=== PATIENT | female | born 1990 | race Caucasian/White ===

== ENCOUNTER 2017-10-02 09:47 | Emergency (ER) | payer SELFPAY ==
--- NOTE | 2017-10-02 10:00 | UC ---
Throat Pain/Nasal Blake HPI - HPI Summary HPI Summary: 27 year old female presents with complains of sinus congestion and left ear pain. - History of Current Complaint Stated Complaint: LEFT EAR/SINUS COMPLAINT Time Seen by Provider: 10/02/17 10:00 Hx Obtained From: Patient Hx Last Menstrual Period: 04/17/16 pt on depo provera Onset/Duration: Sudden Onset Severity: Moderate Pain Scale Used: 0-10 Numeric - 5 Cough: Nonproductive Associated Signs & Symptoms: Positive: Sinus Discomfort Related History: Seasonal Allergies - Allergies/Home Medications Allergies/Adverse Reactions: Allergies Allergy/AdvReac Type Severity Reaction Status Date / Time No Known Allergies Allergy Verified 10/02/17 10:29 Home Medications: Home Medications B/P 1 tab PO DAILY 10/02/17 [History] Ibuprofen [Ibuprofen 200 MG] 600 mg PO PRN 10/02/17 [History] PMH/Surg Hx/FS Hx/Imm Hx Previously Healthy: Yes - Surgical History Surgical History: None - Family History Known Family History: Positive: None, Respiratory Disease - TOBACCO ABUSE: PARENTS (CHILDHOOD 2ND HAND SMOKE EXPOSURE) Negative: Blood Disorder - Social History Alcohol Use: Occasionally Substance Use Type: None, Prescribed Smoking Status (MU): Never Smoked Tobacco Type: eCigarettes Review of Systems Constitutional: Negative Skin: Negative Eyes: Negative ENT: Ear Ache, Nasal Discharge, Sinus Congestion, Sinus Pain/Tenderness Respiratory: Negative Cardiovascular: Negative Gastrointestinal: Negative Genitourinary: Negative Motor: Negative Neurovascular: Negative Musculoskeletal: Negative Neurological: Negative Psychological: Negative All Other Systems Reviewed And Are Negative: Yes Physical Exam Triage Information Reviewed: Yes Vital Signs Reviewed: Yes Eye Exam: Normal ENT: Positive: Nasal congestion, Nasal drainage, Sinus tenderness Dental Exam: Normal Neck exam: Normal Neck: Positive: 1 Respiratory Exam: Normal Cardiovascular Exam: Normal Abdominal Exam: Normal Musculoskeletal Exam: Normal Neurological Exam: Normal Psychological Exam: Normal Skin Exam: Normal Throat Pain/Nasal Course/Dx - Differential Dx/Diagnosis Provider Diagnoses: sinusitis. left otitis externa Discharge - Discharge Plan Condition: Stable Disposition: HOME Prescriptions: Amoxicillin/Clavulanate TAB* [Augmentin TAB 875*] 875 mg PO BID #20 tab Guaifenesin-Codeine [Cheratussin AC] 1 teasp PO BEDTIME PRN #120 ml MDD 5 ml PRN Reason: Cough LoraTADine TAB(NF) [Claritin 10 MG TAB(NF)] 10 mg PO DAILY #30 tab Neomyc/Polym/HC 1% OTIC SUSP* [Cortisporin Otic Susp 1%*] 4 drop LEFT EAR QID # 1 btl Patient Education Materials: Sinusitis (ED), Otitis Externa (ED) Referrals: Non Staff,Doctor [Primary Care Provider] -
--- OUTSIDE RECORDS SUMMARY | 2017-10-02 10:25 | XMS REPORT ---
:1990 External Reference #:[id number] Author Organization [facility] Address [address] [place] [id number] Phone [phone] Care Team Providers Name Role Phone Olga Tran PA Primary Care Physician Unavailable Payers Type Date Identification Numbers Payment Provider Subscriber Medicaid Policy Number: [id number] Medicaid Pe ([facility]) Mariel Raymundo PayID: [id number] [place] [id number] Problems Description No Information Family History Date Family Member(s) Problem(s) Comments General Cystic Fibrosis (Maternal Uncle) General Spina Bifida (Sister) Father Alive Father No Current Problems Mother Alive Mother Lupus Social History Type Date Description Comments Education Highest level completed, 12th grade Marital Status Legal Status: Work Status Full-Time Employment Work Status At Home ETOH Use Currently consumes alcohol Recreational Drug Use Former marijuanna user Smoking Patient has never smoked Recreational Drug Use Teaching Provided Regarding Naloxone/Narcan Training Available At [facility] Tattoo/Piercing Multple Tattoos and Piercings --all Ok Condom Use Always Allergies, Adverse Reactions, Alerts Date Description Reaction Status Severity Comments 04/25/2016 NKDA active 08/16/2017 Adhesives active Medications Medication Date Status Form Strength Qnty SIG Indications Ordering Provider Plan B 09/27/ Active Tablets 1.5mg prn dose In [facility] One-Step 2018 please take MD Oscar within 5 days of unprotected sex Econtra Ez 08/16/ Active Tablets 1.5mg 1tabs take one tab Z30.012 In [facility] 2017 now, call for MD Oscar new dose if vomiting occurs within 1 hour of taking Ortho 08/16/ Active Tablets 0.18/0.215 84tabs 1 by mouth Z30.011 In [facility] Tri-Cyclen 2017 /0.25 every day MD Oscar (28) mg-35 mcg No Active Leona Medications 2016 - [place] 2015 Medications Administered in Office Medication Date Status Form Strength Qnty SIG Indications Ordering Provider Depo-Provera 04/25 Administered Suspension 150mg/ml 1ml intramusc Z30.42 In Wh /2015 nelida Moore MD every 12 weeks til next annual Emergency 1ml01 Administered Injection Patricia Contraceptive /11/24 Michael Malagon ACID DUMPER Contraceptive 08/16 Administered Injection Patricia Pills Jacinda Malagon ACID DUMPER Emergency 08/16 Administered Injection Patricia Contraceptive TODD Malagon J-Depo Provera 04/25 Administered Injection Patricia Injection TODD Malagon Vital Signs Date Vital Result Comment 08/16/2017 BP Systolic 112 mmHg BP Diastolic 70 mmHg Weight 102.00 lb 04/25/2016 BP Systolic 98 mmHg BP Diastolic 60 mmHg Height 59 inches 4'11" Weight 97.00 lb BMI (Body Mass Index) 19.6 kg/m2 Results Test Date Test Result H/L Range Note Thinprep Pap [employer] W/RFX 08/16/2017 Results SEE NOTE 1 HPV HR Urinalysis DIP Only.... 04/25/2016 Urine Protein Random neg Urine Glucose QN Random neg Laboratory test finding 04/25/2016 Test Urine..... neg 1 GYNECOLOGICAL CYTOLOGY REPORT Thinprep TIS PAP w/rfx to HPV E6/E7 REPORT STATUS: FINAL CLINICAL INFORMATION: Routine exam SLIDES / SOURCE: 1 / Cervix, Endocervix STATEMENT OF ADEQUACY: Satisfactory for evaluation. Endocervical/transformation zone component present. INTERPRETATION/RESULT: Negative for intraepithelial lesion or malignancy. COMMENT: This Pap test has been evaluated with computer assisted technology. OPERATIONS FORESTER: LYSSA HUBER(ASCP) For informational Purposes: All cytology specimens are processed and screened at [facility]. [address] [place] [address], [place] [address] Procedures Date CPT Code Description Status 04/25/2016 95513 Therapeutic, Prophylactic Or Diagnostic Injection Completed Subq/Im Plan of Care 09/27/2017 - Patricia Malagon, NPZ30.012 Encounter for prescription of emergency contraceptionComments:PRN dose of ECP requested and given
[2017-10-02 10:29] VITALS: BP 112/72
== END 2017-10-02 10:43 | disposition home or self-care (01) ==
LOC: UCCORT 09:47
DX: J32.9 Chronic sinusitis, unspecified (principal); H60.92 Unspecified otitis externa, left ear; Z77.22 Contact with and (suspected) exposure to environmental tobacco smoke (acute) (chronic)
CPT/HCPCS: 99212; G0463

== ENCOUNTER 2017-10-11 17:03 | Emergency (ER) | payer SELFPAY | END 2017-10-11 19:02 | disposition left against medical advice (07) | LOC: UCCORT 17:03 | DX: H93.92 Unspecified disorder of left ear (principal); Z53.21 Procedure and treatment not carried out due to patient leaving prior to being seen by health care provider ==

== ENCOUNTER 2018-02-18 08:35 | Emergency (ER) | payer SELFPAY ==
[2018-02-18 08:46] VITALS: BP 119/68
[2018-02-18] MEDS ORDERED: Ondansetron ODT TAB* 4 MG PO ONE (08:54)
[2018-02-18] MEDS ORDERED: hydrOXYzine HCL TAB* 25 MG PO ONE (08:54)
--- NOTE | 2018-02-18 08:55 | UC ---
Psychiatric Complaint HPI - HPI Summary HPI Summary: Patient awoke at 5:30 this morning and apical back to sleep. She started feeling a little panicky and anxiety attack nauseated warm sweats. Last anxiety attack like this was a couple years ago she's been using medication relaxation to manage them does not take any medications. - History Of Current Complaint Chief Complaint: UCGeneralIllness Stated Complaint: PANIC ATTACK Time Seen by Provider: 02/18/18 08:44 Hx Obtained From: Patient Hx Last Menstrual Period: 01/06/18 ?: No - has not had sexual relations Onset/Duration: Sudden Onset Timing: Constant Severity Initially: Moderate Severity Currently: Moderate Character: Anxious Aggravating Factor(s): Nothing Alleviating Factor(s): Nothing Associated Signs And Symptoms: Sleep Disturbance Ingestion History: Type/Name Of Drug - Had 4 alcoholic beverages last night - Allergies/Home Medications Allergies/Adverse Reactions: Allergies Allergy/AdvReac Type Severity Reaction Status Date / Time No Known Allergies Allergy Verified 02/18/18 08:43 PMH/Surg Hx/FS Hx/Imm Hx Previously Healthy: Yes - Surgical History Surgical History: None - Family History Known Family History: Positive: None, Respiratory Disease - TOBACCO ABUSE: PARENTS (CHILDHOOD 2ND HAND SMOKE EXPOSURE) Negative: Blood Disorder - Social History Occupation: Unemployed Lives: With Family Alcohol Use: Occasionally Substance Use Type: None Smoking Status (MU): Never Smoked Tobacco Type: eCigarettes Review of Systems Constitutional: Negative Skin: Negative Eyes: Negative ENT: Negative Respiratory: Negative Cardiovascular: Negative Gastrointestinal: Negative Genitourinary: Negative Motor: Negative Neurovascular: Negative Musculoskeletal: Negative Neurological: Negative Psychological: Anxious Is Patient Immunocompromised?: No All Other Systems Reviewed And Are Negative: Yes Physical Exam Triage Information Reviewed: Yes Appearance: Well-Appearing, No Pain Distress, Well-Nourished Vital Signs: Initial Vital Signs Temp 98.4 F 02/18/18 08:40 Pulse 96 02/18/18 08:40 Resp 20 02/18/18 08:40 BP 119/68 02/18/18 08:40 Pulse Ox 100 02/18/18 08:40 Vital Signs Reviewed: Yes Eye Exam: Normal Eyes: Positive: Conjunctiva Clear ENT Exam: Normal ENT: Positive: Normal ENT inspection, Hearing grossly normal. Negative: Trismus , Muffled voice, Hoarse voice Dental Exam: Normal Neck exam: Normal Neck: Positive: Supple, Nontender Respiratory Exam: Normal Respiratory: Positive: Chest non-tender, No respiratory distress, No accessory muscle use Cardiovascular Exam: Normal Cardiovascular: Positive: RRR, Pulses Normal, Brisk Capillary Refill Musculoskeletal Exam: Normal Musculoskeletal: Positive: Strength Intact, ROM Intact, No Edema Neurological Exam: Normal Neurological: Positive: Alert, Muscle Tone Normal Psychological Exam: Normal Psychological: Positive: Other: - Patient denies homicidal suicidal ideation. Patient reports being treated with multiple different anxiety/depression medicines by her primary care provider. She states the daily medications not necessary as she rarely has these feelings Skin Exam: Normal Re-Evaluation - Re-Evaluation First Eval Change: Improved - Feels better and taking by mouth fluids well Psych Complaint Course/Dx - Course Course Of Treatment: Discharge to home increase fluids rest will Rx some Vistaril 25 mg and some Zofran follow up with PCP for further evaluation of anxiety symptoms referrals have been made - Differential Dx/Diagnosis Provider Diagnoses: Panic Disorder Discharge - Sign-Out/Discharge Documenting (check all that apply): Discharge/Admit/Transfer - Discharge Plan Condition: Stable Disposition: HOME Prescriptions: hydrOXYzine HCL TAB* [Atarax 25 MG TAB*] 25 mg PO TID PRN #5 tab PRN Reason: anxiety Ondansetron ODT TAB* [Zofran 4 MG Odt TAB*] 4 mg PO Q6H PRN #5 tab.odt PRN Reason: nausea/vomiting Patient Education Materials: Panic Attack (ED), At-Risk Alcohol Use (ED) Referrals: SANDI Chavarria [Medical Doctor] - 1 Week - Billing Disposition and Condition Condition: STABLE Disposition: HOME
== END 2018-02-18 09:42 | disposition home or self-care (01) ==
LOC: UCCORT 08:35
DX: F17.290 Nicotine dependence, other tobacco product, uncomplicated (principal); F41.0 Panic disorder [episodic paroxysmal anxiety]
CPT/HCPCS: 99212; A9270-GY; G0463

== ENCOUNTER 2018-07-07 18:21 | Emergency (ER) | payer SELFPAY ==
--- NOTE | 2018-07-07 19:08 | UC ---
Syncope/New Syncope HPI - HPI Summary HPI Summary: 27-year-old woman comes to the clinic today with a chief complaint of syncope. This happened approximately 3-1/2 hours ago. 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 She did have some thoracic back pain at the time. She had that pain going on for at least several minutes if not longer. Movement could make the pain better. She denied any anterior chest pain. Denied any palpitations or feeling of irregular heart rate or rhythm. 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 Her client told her she had been unconscious for approximately 30 seconds. She awoke very sweaty. She still has a small amount of the thoracic back pain. No known injuries. She does not feel short of breath. She is not passed out before. She does feel fatigued since the episode. She reports eating and drinking normally today. She is on a control pill she is not a smoker. She has no edema or leg pain. - History Of Current Complaint Chief Complaint: UCGeneralIllness Stated Complaint: FAINTED EARLIER Time Seen by Provider: 07/07/18 18:39 Hx Last Menstrual Period: 06/14/18 Pain Intensity: 3 - Allergies/Home Medications Allergies/Adverse Reactions: Allergies Allergy/AdvReac Type Severity Reaction Status Date / Time No Known Allergies Allergy Verified 07/07/18 18:30 Home Medications: Home Medications Bcp 1 tab DAILY 07/07/18 [History Confirmed 07/07/18] PMH/Surg Hx/FS Hx/Imm Hx Previously Healthy: Yes - Surgical History Surgical History: None - Family History Known Family History: Positive: None, Respiratory Disease - TOBACCO ABUSE: PARENTS (CHILDHOOD 2ND HAND SMOKE EXPOSURE) Negative: Diabetes, Blood Disorder - Social History Alcohol Use: Occasionally Substance Use Type: None Smoking Status (MU): Never Smoked Tobacco Type: eCigarettes Review of Systems Constitutional: Fatigue Skin: Negative Eyes: Negative ENT: Negative Respiratory: Negative Cardiovascular: Negative Gastrointestinal: Negative Genitourinary: Negative Motor: Negative Neurovascular: Negative Musculoskeletal: Negative Neurological: Negative Psychological: Negative Is Patient Immunocompromised?: No All Other Systems Reviewed And Are Negative: Yes Physical Exam Triage Information Reviewed: Yes Appearance: Well-Appearing, No Pain Distress, Well-Nourished Vital Signs: Initial Vital Signs Temp 98.5 F 07/07/18 18:29 Pulse 116 07/07/18 18:29 Resp 16 07/07/18 18:29 BP 120/70 07/07/18 18:29 Pulse Ox 100 07/07/18 18:29 Vital Signs Reviewed: Yes Eye Exam: Normal Eyes: Positive: Conjunctiva Clear ENT Exam: Normal ENT: Positive: Normal ENT inspection Neck exam: Normal Neck: Positive: Supple Respiratory: Positive: Lungs clear, Normal breath sounds, No respiratory distress, Other: - Mild tenderness to palpation of thoracic back Cardiovascular: Positive: RRR, No Murmur Musculoskeletal Exam: Normal Musculoskeletal: Positive: Strength Intact, ROM Intact, No Edema, Other: - No calf tenderness or masses palpated. Neurological Exam: Normal Neurological: Positive: Alert, Muscle Tone Normal Psychological Exam: Normal Psychological: Positive: Age Appropriate Behavior Skin Exam: Normal Diagnostics - EKG EKG Comments: AT 18:39 Cardiac Rate: NL Cardiac Rhythm: Sinus: Normal - 77 BPM Ectopy: None ST Segment: Normal Syncope Course/Dx - Course Course Of Treatment: The chest x-ray is no acute disease process radiologist reading is pending. I discussed this and the EKG with the patient. Also the orthostatics were mildly positive although the patient felt okay her heart rate did increase going from laying to standing. During the episode the patient didn 't not recall any chest pain or palpitations. We discussed getting checked in the emergency department this evening however the patient preferred to not be checked in the emergency department and preferred to be evaluated here in clinic. She understands that any lab work will be done to swallow we cannot do a troponin or d-dimer here. Labwork is pending. The overall plan is for her to follow up with the [facility] or through her primary care doctor for further evaluation and possible Holter monitor. Also if she has any further symptoms or any concerns she is to treat reevaluated in the emergency department right away. - Differential Dx/Diagnosis Provider Diagnoses: SYNCOPE Discharge - Sign-Out/Discharge Documenting (check all that apply): Patient Departure All imaging exams completed and their final reports reviewed: No - Discharge Plan Condition: Stable Disposition: HOME Patient Education Materials: Syncope (ED) Referrals: [facility] [place] [facility]IAN REFERRAL [Outside] [facility] [Outside] Additional Instructions: FOLLOW UP WITH YOUR DOCTOR IF NOT COMPLETELY IMPROVED. GO TO THE EMERGENCY DEPARTMENT FOR ANY WORSENING OF YOUR CONDITION; YOU PASS OUT , CHEST PAIN, PALPITATIONS, SHORTNESS OF BREATH OR QUESTIONS OR CONCERNS. - Billing Disposition and Condition Condition: STABLE Disposition: Home
[2018-07-07 19:11] VITALS: BP 116/73
--- NOTE | 2018-07-08 07:56 | RAD ---
Indication: Syncope. 2 views of the chest including dual energy PA views demonstrate no mediastinal shift. Heart is of normal size and configuration. Lung small show no pleural fluid, pneumonia or pneumothorax. IMPRESSION: No active cardiopulmonary disease is noted. R0
[2018-07-08 14:33] LABS: ABS Basophils 0 10^3/ul (0-0.2); ABS Eosinophils 0.4 10^3/ul (0-0.6); ABS Lymphocytes 1.4 10^3/ul (1.0-4.8); ABS Monocytes 0.5 10^3/ul (0-0.8); ABS Neutrophils 5.7 10^3/ul (1.5-7.7); ABS Nucleated RBC 0 10^3/ul; Eosinophil % 5.1 % (0-6); Hematocrit 40 % (35-47); Hemoglobin 13.3 g/dl (12.0-16.0); Lymphocyte % 17.6 % (25-47); Mean Corpuscular HGB Conc 34 g/dl (31-36); Mean Corpuscular Hemoglobin 31 pg (27-31); Mean Corpuscular Volume 92 fL (80-97); Mean Platelet Volume 9.2 um3 (7.4-10.4); Nucleated Red Blood Cells % 0.2; Platelet Count 218 10^3/ul (150-450); Red Blood Count 4.32 10^6/ul (4.00-5.40); Red Cell Distribution Width 13 % (10.5-15); White Blood Count 8.2 10^3/ul (3.5-10.8)
[2018-07-08 14:44] LABS: EGFR Non-African American 94.9 (>60)
--- NOTE | 2018-07-09 07:14 | UC ---
- Progress Note Progress Note: please notify pt total protein a little low this needs routine follow up with a primary care provider Discharge - Sign-Out/Discharge Documenting (check all that apply): Post-Discharge Follow Up All imaging exams completed and their final reports reviewed: No - Discharge Plan Condition: Stable Disposition: HOME Patient Education Materials: Syncope (ED) [facility]errals: [facility] [Outside] [facility] [place] [facility] [Outside] Additional Instructions: FOLLOW UP WITH YOUR DOCTOR IF NOT COMPLETELY IMPROVED. GO TO THE EMERGENCY DEPARTMENT FOR ANY WORSENING OF YOUR CONDITION; YOU PASS OUT , CHEST PAIN, PALPITATIONS, SHORTNESS OF BREATH OR QUESTIONS OR CONCERNS. - Billing Disposition and Condition Condition: STABLE Disposition: Home
--- NOTE | 2018-07-10 08:40 | UC ---
Discharge - Sign-Out/Discharge Documenting (check all that apply): Post-Discharge Follow Up All imaging exams completed and their final reports reviewed: Yes - Discharge Plan Condition: Stable Disposition: HOME Patient Education Materials: Syncope (ED) Referrals: [facility] [Outside] [facility] [place] [place]Outside] Additional Instructions: FOLLOW UP WITH YOUR DOCTOR IF NOT COMPLETELY IMPROVED. GO TO THE EMERGENCY DEPARTMENT FOR ANY WORSENING OF YOUR CONDITION; YOU PASS OUT , CHEST PAIN, PALPITATIONS, SHORTNESS OF BREATH OR QUESTIONS OR CONCERNS. - Billing Disposition and Condition Condition: STABLE Disposition: Home
== END 2018-07-07 19:55 | disposition home or self-care (01) ==
LOC: UCCORT 18:21
DX: R55 Syncope and collapse (principal)
CPT/HCPCS: 36415; 71046; 80053; 83735; 84443; 84702; 85025; 93005; 99212; G0463